=== PATIENT | female | born 2000 | race Native Hawaiian/Other Pacific Islander ===

== ENCOUNTER 2021-01-03 10:59 | Emergency (ER) | payer OTHER ==
[~2021-01-03] VITALS: Ht 152.4 cm; Wt 44.5 kg
[2021-01-03 11:03] VITALS: BP 123/67; TEMP 97.8
[2021-01-03 11:27] LABS: PLATELET COUNT 270 K/uL (152-353)
[2021-01-03 11:40] LABS: POTASSIUM 3.7 mmol/L (3.6-5.2)
== END 2021-01-03 12:33 | disposition home or self-care (01) ==
LOC: ED 10:59
PROVIDERS: Emergency Medicine Emergency Medical Services
DX: O21.0 Mild hyperemesis gravidarum (principal); Z3A.01 Less than 8 weeks gestation of pregnancy
CPT/HCPCS: 80053; 81000; 83690; 84702; 85027; 96360; 96375; 99284; J2405